=== PATIENT | male | born 1975 | race Caucasian/White ===

== ENCOUNTER 2021-08-26 09:46 | Emergency (ER) | payer MEDICAID ==
[~2021-08-26] VITALS: Ht 175.3 cm; Wt 95.5 kg
[2021-08-26 10:04] VITALS: BP 153/106
== END 2021-08-26 13:34 | disposition home or self-care (01) ==
LOC: ER 09:47
DX: U07.1 COVID-19 (principal); R53.83 Other fatigue; R07.89 Other chest pain; R05.9 Cough, unspecified; R09.89 Other specified symptoms and signs involving the circulatory and respiratory systems; F17.200 Nicotine dependence, unspecified, uncomplicated; Z88.8 Allergy status to other drugs, medicaments and biological substances
CPT/HCPCS: 71045; 87635; 99284; C9803

== ENCOUNTER 2021-08-26 14:45 | Emergency (ER) | payer MEDICAID ==
[~2021-08-26] VITALS: Ht 175.3 cm; Wt 95.5 kg
[2021-08-26 15:12] VITALS: BP 156/115
[2021-08-26] MEDS ORDERED: OLANZapine 5mg rapidly disint. tablet PO ONE (16:15)
--- NOTE | 2021-08-26 17:05 | NUR ---
MEDICAL RECORDS RELEASE FAXED TO [facility]
--- NOTE | 2021-08-26 18:57 | NUR ---
PATIENT REFUSING [id number] AT THIS TIME.
--- NOTE | 2021-08-26 19:50 | NUR ---
pt not in rap
[2021-08-26] MEDS ORDERED: traZODone 50mg tablet PO SCH (20:00)
== END 2021-08-26 21:36 | disposition left against medical advice (07) ==
LOC: ER 14:46
DX: U07.1 COVID-19 (principal); F32.9 Major depressive disorder, single episode, unspecified; R07.89 Other chest pain; F17.200 Nicotine dependence, unspecified, uncomplicated
CPT/HCPCS: 93005; 99283

== ENCOUNTER 2021-08-27 20:08 | Emergency (ER) | payer MEDICAID ==
[~2021-08-27] VITALS: Ht 175.3 cm; Wt 100.0 kg
[2021-08-27 20:59] VITALS: BP 155/105
== END 2021-08-27 22:44 | disposition home or self-care (01) ==
LOC: ER 20:09
DX: U07.1 COVID-19 (principal); R05.9 Cough, unspecified; Z88.8 Allergy status to other drugs, medicaments and biological substances
CPT/HCPCS: 99282